=== PATIENT | female | born 1965 | race Caucasian/White ===

== ENCOUNTER 2023-02-17 16:40 | Emergency (ER) | payer OTHER ==
[2023-02-17 16:49] VITALS: BP 120/85; PULSE 98; RESP 18; TEMP 98.2; BMI 28.3
[2023-02-17] MEDS ORDERED: ACETAMINOPHEN 1000 MG/100 ML BAG IVPB ONE (17:37)
[2023-02-17] MEDS ORDERED: SODIUM CHLORIDE 0.9% 500 ML INFUS.BAG IV ONE (17:37)
[2023-02-17] MEDS ORDERED: ACETAMINOPHEN INJECTION 100 ML IVPB ONE (18:11)
[2023-02-17 18:37] LABS: BASO % 0.4 % (0-2.0); EOS % 0.8 % (0-4.5); HEMATOCRIT 40.5 % (32.4-45.2); HEMOGLOBIN 13.7 GM/dL (10.7-15.3); LYMPH % 13.2 % (8-40); MCHC 33.8 g/dl (32.0-36.0); MEAN CELL VOLUME 97.5 fl (80-96); MEAN PLT VOLUME 7.4 fl (7.5-11.1); MONO % 4.7 % (3.8-10.2); NEUT % 80.9 % (42.8-82.8); PLATELET COUNT 215 10^3/uL (134-434); RBC 4.15 M/mm3 (3.60-5.2); RDW 13.7 % (11.6-15.6); WHITE BLOOD COUNT 10.3 K/mm3 (4.0-10.0)
[2023-02-17 19:03] LABS: POTASSIUM 3.9 mmol/L (3.5-5.1)
[2023-02-17 19:05] LABS: ALBUMIN 3.6 g/dl (3.4-5.0); BLOOD UREA NITROGEN 16.2 mg/dL (7-18); CALCIUM 8.7 mg/dL (8.5-10.1)
[2023-02-17 19:08] LABS: CREATININE 1.2 mg/dL (0.55-1.3)
[2023-02-17 19:10] LABS: BILIRUBIN,TOTAL 1.8 mg/dL (0.2-1); TOT PROT 6.6 g/dl (6.4-8.2)
[2023-02-17 19:30] LABS: PH,URINE 5.5 (5.0-8.0); URINE APPEARANCE CLEAR; URINE BILIRUBIN NEGATIVE (NEGATIVE); URINE COLOR YELLOW; URINE GLUCOSE (UA) NEGATIVE (NEGATIVE); URINE KETONE NEGATIVE (NEGATIVE); URINE LEUK ESTERASE NEGATIVE (NEGATIVE); URINE NITRITE NEGATIVE (NEGATIVE); URINE PROTEIN NEGATIVE (NEGATIVE); URINE UROBILINOGEN 0.2 mg/dL (0.2-1.0)
== END 2023-02-17 20:38 | disposition home or self-care (01) ==
LOC: JER 16:40
PROC: 3E033NZ Introduction of Analgesics, Hypnotics, Sedatives into Peripheral Vein, Percutaneous Approach (ICD-10-PCS; principal; 2023-02-17)
DX: R10.32 Left lower quadrant pain (principal); N13.2 Hydronephrosis with renal and ureteral calculous obstruction
CPT/HCPCS: 36415; 74176-TC; 80053; 81003; 85025; 87086; 99284-25

== ENCOUNTER 2024-01-11 16:15 | Emergency (ER) | payer OTHER ==
[2024-01-11 16:28] VITALS: BMI 27.4
[2024-01-11 17:32] LABS: EPI CELLS 0 /uL (0-25.1); HYALINE CASTS 0 /uL (0-3.1); PH,URINE 5.5 (5.0-8.0); URINE APPEARANCE CLEAR; URINE BACTERIA 1 /uL (0-1359); URINE BILIRUBIN NEGATIVE (NEGATIVE); URINE COLOR YELLOW; URINE GLUCOSE (UA) NEGATIVE (NEGATIVE); URINE KETONE NEGATIVE (NEGATIVE); URINE LEUK ESTERASE NEGATIVE (NEGATIVE); URINE NITRITE NEGATIVE (NEGATIVE); URINE PROTEIN NEGATIVE (NEGATIVE); URINE RBC 33 /uL (0-23.9); URINE UROBILINOGEN 0.2 mg/dL (0.2-1.0); URINE WBC 3 /uL (0-25.8)
[2024-01-11 17:44] LABS: BASO % 0.2 % (0-2.0); EOS % 0.2 % (0-4.5); HEMOGLOBIN 13.6 GM/dL (10.7-15.3); LYMPH % 14.9 % (8-40); MCH 32.7 pg (25.7-33.7); MCHC 33.1 g/dl (32.0-36.0); MEAN PLT VOLUME 7.8 fl (7.5-11.1); MONO % 5.6 % (3.8-10.2); NEUT % 79.1 % (42.8-82.8); PLATELET COUNT 263 10^3/uL (134-434); RBC 4.14 M/mm3 (3.60-5.2); RDW 13.6 % (11.6-15.6); WHITE BLOOD COUNT 13.3 K/mm3 (4.0-10.0)
[2024-01-11 18:23] LABS: POTASSIUM 3.4 mmol/L (3.5-5.1)
[2024-01-11 18:25] LABS: ALBUMIN 3.5 g/dl (3.4-5.0)
[2024-01-11 18:28] LABS: CREATININE 0.7 mg/dL (0.55-1.3)
[2024-01-11 18:30] LABS: BILIRUBIN,TOTAL 2.4 mg/dL (0.2-1); TOT PROT 6.5 g/dl (6.4-8.2)
[2024-01-11 18:32] LABS: HCG,QUALITATIVE URINE Negative
[2024-01-11] MEDS ORDERED: ACETAMINOPHEN 325 MG TABLET (FP) ONE (18:44)
[2024-01-11] MEDS: ACETAMINOPHEN 325 MG TABLET (FP) PO ONE (18:48)
[2024-01-11] MEDS ORDERED: KETOROLAC TROMETHAMINE 15 MG/ML VIAL ONE (19:00)
[2024-01-11] MEDS: SODIUM CHLORIDE 0.9% 500 ML INFUS.BAG IV ONE (19:09)
[2024-01-11] MEDS: KETOROLAC TROMETHAMINE 15 MG/ML VIAL IVPUSH ONE (19:10)
[2024-01-11 21:08] VITALS: BP 110/78; PULSE 82; RESP 19; TEMP 97.9
== END 2024-01-11 21:15 | disposition home or self-care (01) ==
LOC: JER 16:15
PROC: 3E0303Z Introduction of Anti-inflammatory into Peripheral Vein, Open Approach (ICD-10-PCS; principal; 2024-01-11)
DX: N20.0 Calculus of kidney (principal); R10.30 Lower abdominal pain, unspecified; R68.83 Chills (without fever)
CPT/HCPCS: 36415; 74176-TC; 80053; 81003; 84703; 85025; 87086; 99285-25